=== PATIENT | male | born 1985 | race Caucasian/White ===

== ENCOUNTER 2016-07-16 15:15 | Emergency (ER) | payer MEDICAID, OTHER ==
[~2016-07-16 15:15] MED LIST: ENOXAPARIN 150 MG/ML SYR SC SCH
[2016-07-16 15:32] VITALS: RESP 18; O2SAT 95
--- NOTE | 2016-07-16 16:30 | EDPHY ---
H & P Stated Complaint: 3 DAYS R CALF SWELLING AND PAIN Time Seen by Provider: 07/16/16 15:59 HPI/ROS: CHIEF COMPLAINT: right calf pain and swelling HISTORY OF PRESENT ILLNESS: 30-year-old male presents to the emergency department complaining of right calf pain times 3 days. Patient states over the last couple days that his gone down to his ankle become more swollen and red. Patient describes the pain is cramping and aching, moderate in nature, constant. It wakes him from sleeping. He denies trauma. No fevers. No previous similar pain. Patient denies chest pain or shortness of breath, no history of blood clots, no recent travel. REVIEW OF SYSTEMS: A comprehensive 10 point review of systems is otherwise negative aside from elements mentioned in the history of present illness. Source: Patient Exam Limitations: No limitations - Personal History Current Tetanus/Diphtheria Vaccine: Yes - Medical/Surgical History Hx Asthma: Yes Hx Chronic Respiratory Disease: No Hx Diabetes: No Hx Cardiac Disease: No Hx Renal Disease: No Hx Cirrhosis: No Hx Alcoholism: No Hx HIV/AIDS: No Hx Splenectomy or Spleen Trauma: No Other PMH: pmh- asthma, [place] - Social History Smoking Status: Current some day smoker - Physical Exam Exam: Physical Exam Gen: Alert and Oriented, NAD HEENT: PERRL, moist mucous membranes NECK: no meningismus CV: regular rate and regular rhythm PULM: CTAB, no wheezes ABDOMEN: Obese, soft, non tender to palpation, BS present BACK: No CVA tenderness NEURO: Neurologically grossly intact EXTREMITIES: Right calf with mild swelling, right ankle with swelling, tenderness to palpation to posterior calf and medial ankle, erythema to medial ankle and lower medial calf. 2+ pedal pulses, sensation intact to light touch, no knee pain or swelling, no tenderness or fullness in the popliteal fossa, no erythema above knee SKIN: No break in skin on exposed skin PSYCH: answers questions appropriately. Constitutional: Initial Vital Signs Temperature (C) 36.7 C 07/16/16 15:28 Heart Rate 92 07/16/16 15:28 Respiratory Rate 18 07/16/16 15:28 Blood Pressure 183/89 H 07/16/16 15:28 O2 Sat (%) 95 07/16/16 15:28 O2 Delivery Mode Room Air Allergies/Adverse Reactions: No Known Allergies Allergy (Verified 07/16/16 15:27) Home Medications: Medication Instructions Recorded Albuterol 07/16/16 Enoxaparin [Lovenox 150mg (*)] 150 mg SC BID #10 syr 07/16/16 Warfarin Sodium [Coumadin 5MG (*)] 5 mg PO DAILY16 #10 tab 07/16/16 Medical Decision Making - Diagnostics Imaging: RLL ultrasound Findings: Ultrasound venous duplex and Doppler imaging of the common femoral vein, femoral vein, popliteal vein, calf veins, greater saphenous vein origin, and contralateral common femoral vein demonstrates positive intraluminal thrombus involving the right popliteal, posterior tibial, and peroneal calf veins. No thrombus in the common femoral or superficial femoral vein. Impression: Positive deep venous thrombosis in the right popliteal and calf veins. Findings and recommendations discussed with Emergency Department physician, Radha Adams NP at 17:24 hour, 07/16/2016. Final report concurs with initial preliminary interpretation. Dictated By: Flash Dolan ED Course/Re-evaluation: 30-year-old male presents with right calf pain x4 days. Ultrasound reveals a DVT in his right popliteal and calf vein. Patient has no chest pain or shortness of breath. I believe this clot is likely from being sedentary over the last 2 months after losing his job. CBC, chemistry panel and INR obtained. Patient is started on Lovenox and Coumadin. He is given Lovenox teaching along with his girlfriend. I have [facility] with at [facility], the patient does not have a primary care doctor so I have set him up with [facility]. She agrees to call him to set up follow-up for repeat INR. Patient has been given instructions on Coumadin, foods that affect Coumadin level. He is given return precautions for any shortness of breath or chest pain. He agrees to follow up at [facility] in the next 3-5 days. Differential Diagnosis: Diagnosis considered but not limited to muscle strain, Jeff cyst, DVT, cellulitis - Data Points Laboratory Results: Laboratory Results 07/16/16 16:55 07/16/16 16:55 Medications Given: Discontinued Medications Enoxaparin Sodium (Lovenox) 148 mg SC EDNOW ONE Stop: 07/16/16 18:23 Last Admin: 07/16/16 18:59 Dose: 148 mg Warfarin Sodium (Coumadin) 5 mg PO EDNOW ONE Stop: 07/16/16 18:41 Last Admin: 07/16/16 19:06 Dose: 5 mg Departure - Departure Disposition: Home, Routine, Self-Care Clinical Impression: Right leg DVT, Depression Condition: Good Instructions: Warfarin (By mouth), Enoxaparin (By injection), Deep Venous Thrombosis (ED), Vitamin K in Foods (ED) Additional Instructions: Give yourself Lovenox injections 150 mg every 12 hours until you follow up [facility]. Take 5 mg of Coumadin daily until you follow up with them. Avoid foods high in vitamin K, see list provided. Return to the emergency department for any chest pain, shortness of breath, any new symptoms, any questions or concerns. Call [facility] in the morning to schedule an appointment to be seen. I spoke with Dr. Gutierrez who I reviewed your case with, she says they will contact you tomorrow, I would contact them if you do not hear from them by noon. You need to have an INR drawn in 3-5 days. 1. [facility] does operate a 24/ psychiatric crisis unit located at [address] [place] [address]. The telephone number for the 24 hour crisis center is [phone]. 2. Please return to the ED if you are feeling suicidal, having thoughts of harming yourself/others or should you feel unsafe or have worsening symptoms. Referrals: [facility],. [Clinic] - As per Instructions Prescriptions: Enoxaparin [Lovenox 150mg (*)] 150 mg SC BID #10 syr Warfarin Sodium [Coumadin 5MG (*)] 5 mg PO DAILY16 #10 tab
[2016-07-16 17:09] LABS: % IMMATURE GRANULYOCYTES 0.2 % (0.0-1.1); ABSOLUTE IMMATURE GRANULOCYTES 0.02 10^3/uL (0.00-0.10); ADD DIFF? NO; ADD MORPH? NO; ADD SCAN? NO; ATYPICAL LYMPHOCYTE FLAG 10 (0-99); FRAGMENT RBC FLAG 0 (0-99); HEMATOCRIT 49.5 % (40.0-51.0); HEMOGLOBIN 16.7 g/dL (13.7-17.5); LEFT SHIFT FLG 0 (0-99); LIPEMIA HEMOLYSIS FLAG 80 (0-99); MEAN CELL HEMOGLOBIN 30.5 pg (27.9-34.1); MEAN CELL HEMOGLOBIN CONCENTR. 33.7 g/dL (32.4-36.7); MEAN CELL VOLUME 90.3 fL (81.5-99.8); MEAN PLATELET VOLUME 10.3 fL (8.7-11.7); PLATELET CLUMPS FLAG 0 (0-99); PLATELET COUNT 297 10^3/uL (150-400); RED BLOOD CELL COUNT 5.48 10^6/uL (4.40-6.38); RED CELL DISTRIBUTION WIDTH 14.1 % (11.5-15.2)
[2016-07-16 17:28] LABS: ANION GAP 11 mEq/L (8-16); CALCIUM 9.8 mg/dL (8.5-10.4); CARBON DIOXIDE 26 mEq/l (22-31); CHLORIDE 102 mEq/L (97-110); CREATININE 0.9 mg/dL (0.7-1.3); GLOMERULAR FILTRATION RATE > 60; GLUCOSE 98 mg/dL (70-100); POTASSIUM 4.3 mEq/L (3.5-5.2); SODIUM 139 mEq/L (134-144)
[2016-07-16 17:47] LABS: INR 1.01 (0.83-1.16); PROTIME(PATIENT) 13.2 SEC (12.0-15.0)
[2016-07-16] MEDS ORDERED: ENOXAPARIN 150 MG/ML SYR SC ONE (18:22)
[2016-07-16] MEDS ORDERED: WARFARIN SODIUM 5 MG TAB PO ONE (18:40)
[2016-07-16 19:44] VITALS: BP 169/98; PULSE 83; TEMP 97.9
== END 2016-07-16 19:44 | disposition home or self-care (01) ==
DX: I82.402 Acute embolism and thrombosis of unspecified deep veins of left lower extremity (principal); F32.9 Major depressive disorder, single episode, unspecified; J45.909 Unspecified asthma, uncomplicated; F17.200 Nicotine dependence, unspecified, uncomplicated; Z79.01 Long term (current) use of anticoagulants

== ENCOUNTER 2016-11-07 02:55 | Emergency (ER) | payer MEDICAID ==
[2016-11-07 03:02] VITALS: O2SAT 93
--- NOTE | 2016-11-07 04:11 | EDPHY ---
H & P Stated Complaint: r/o DVT L leg; similar to prior DVT symptoms Time Seen by Provider: 11/07/16 03:16 HPI/ROS: HPI The patient presents with left leg swelling which has been present for the last 1 week. It started slowly and has gotten progressively worse. Noticed some redness of his medial ankle and calf. The pain is achy, worse upon standing and has been constant. He has a history of right leg DVT diagnosed in July, thought to be related to being sedentary. He was initially on Lovenox and Coumadin and then was switched to Xarelto because of difficulty with INR on Coumadin. He has been off of Xarelto for the last 6 weeks. He does not have any shortness of breath or chest pain.. REVIEW OF SYSTEMS Constitutional: No fever, no chills. Eyes: No discharge. ENT: No sore throat. Cardiovascular: No chest pain, no palpitations. Respiratory: No cough, no shortness of breath. Gastrointestinal: No abdominal pain, no vomiting. Genitourinary: No hematuria. Musculoskeletal: No back pain. Skin: No rashes. Neurological: No headache. PMHx: Previous right lower extremity DVT Soc Hx: Housed PHYSICAL General Appearance: Alert, no distress Eyes: Pupils equal and round no pallor or injection ENT, Mouth: Mucous membranes moist Respiratory: There are no retractions, lungs are clear to auscultation Cardiovascular: Regular rate and rhythm Gastrointestinal: Abdomen is soft and non-tender, no masses, bowel sounds normal Neurological: A&O, moves all extremities Skin: Warm and dry, no rashes Musculoskeletal: Neck is supple non tender Extremities: Left leg is edematous to knee, there is erythema of his medial ankle with streak of the medial calf, thigh appears normal, full range of motion of knee Psychiatric: Patient is oriented X 3, there is no agitation Source: Patient Exam Limitations: No limitations - Personal History Current Tetanus/Diphtheria Vaccine: Yes - Medical/Surgical History Hx Asthma: Yes Hx Chronic Respiratory Disease: No Hx Diabetes: No Hx Cardiac Disease: No Hx Renal Disease: No Hx Cirrhosis: No Hx Alcoholism: No Hx HIV/AIDS: No Hx Splenectomy or Spleen Trauma: No Other PMH: PMHx: asthma, [place]. PSHx: denies - Social History Smoking Status: Current some day smoker Constitutional: Initial Vital Signs Temperature (C) 36.8 C 11/07/16 02:57 Heart Rate 95 11/07/16 02:57 Respiratory Rate 22 H 11/07/16 02:57 Blood Pressure 122/87 H 11/07/16 02:57 O2 Sat (%) 93 11/07/16 02:57 O2 Delivery Mode Room Air Allergies/Adverse Reactions: cat dander Allergy (Verified 11/07/16 02:57) Home Medications: Medication Instructions Recorded NK [No Known Home Meds] 11/07/16 Medical Decision Making - Diagnostics Imaging Results: DVT study left leg shows thrombus within a branch of the greater saphenous vein along the calf. Imaging: Discussed imaging studies w/ bingo caller Radiologist Differential Diagnosis: This is a 31-year-old male, prior history of right leg DVT involving the popliteal and calf veins, not on any anticoagulation currently who presents with leg swelling and pain in his left leg for the last 1 week. Differential diagnosis includes DVT, superficial thrombophlebitis, cellulitis, less likely abscess. DVT ultrasound was performed in the emergency room which showed superficial thrombophlebitis of the greater saphenous vein. There is no sign of DVT. Because of this, he should have repeat ultrasound in 1 week. I have discussed supportive measures with [id number], ice or heat, compression stockings, elevation of his leg while at rest. I have called the [facility] and left a message so that he can have follow-up within the next 1 week. He is in agreement with this plan. Departure - Departure Disposition: Home, Routine, Self-Care Clinical Impression: Superficial thrombophlebitis of left leg Condition: Good Instructions: Superficial Thrombophlebitis (ED) Additional Instructions: When your at home, please keep the leg elevated. You can use hot or cool compresses to help with pain. You should consider purchasing compression stockings to help with the swelling. You should take ibuprofen 600 mg 3 times a day for pain. I would like you to follow up at the clinic in 1 week for repeat ultrasound of your leg. If your worse in any way, you should return to the emergency room. Referrals: [facility] [Other] - As per Instructions
[2016-11-07 04:43] VITALS: BP 141/91; PULSE 86; RESP 16; TEMP 98.6
== END 2016-11-07 04:43 | disposition home or self-care (01) ==
DX: I80.02 Phlebitis and thrombophlebitis of superficial vessels of left lower extremity (principal); J45.909 Unspecified asthma, uncomplicated; F17.200 Nicotine dependence, unspecified, uncomplicated